=== PATIENT | female | born 1970 | race Caucasian/White ===

== ENCOUNTER → 2020-11-13 | Outpatient (CLI) | payer BC ==
[~2020-11-13] MED LIST: AMOXICILLIN 8751 TAB PO; FLAGYL500 MG
== END ==
LOC: MC.RAD 16:37
DX: Z12.31 Encounter for screening mammogram for malignant neoplasm of breast (principal); N63.10 Unspecified lump in the right breast, unspecified quadrant; N63.20 Unspecified lump in the left breast, unspecified quadrant

== ENCOUNTER → 2020-11-19 | Outpatient (CLI) | payer BC | LOC: MC.RAD 06:58 | DX: N60.02 Solitary cyst of left breast (principal); N60.01 Solitary cyst of right breast; N64.9 Disorder of breast, unspecified ==

== ENCOUNTER → 2021-05-05 | Emergency (ER) | payer BC ==
[~2021-05-05] VITALS: Ht 172.7 cm; Wt 100.0 kg
[2021-05-05 19:48] VITALS: BP 138/80; PULSE 70; TEMP 97.5
== END ==
LOC: COL.ER 19:39
DX: S31.815A Open bite of right buttock, initial encounter (principal); Z23 Encounter for immunization; W54.0XXA Bitten by dog, initial encounter

== ENCOUNTER → 2022-01-14 | Outpatient (CLI) | payer OTHER | LOC: MC.RAD 14:38 | DX: Z12.31 Encounter for screening mammogram for malignant neoplasm of breast (principal); N64.9 Disorder of breast, unspecified ==

== ENCOUNTER 2022-01-31 07:20 | Day surgery (SDC) | payer BC ==
[~2022-01-31] VITALS: Ht 172.7 cm; Wt 103.2 kg
[2022-01-31 07:41] VITALS: BP 127/69; PULSE 66; TEMP 97.8
[2022-01-31 08:50] VITALS: BP 115/60; PULSE 70; TEMP 97.4
--- NOTE | 2022-01-31 08:55 | NUR ---
0850 - PT arrived from procedure, drowsy but oriened. PT assisted up and out of bed by 2:1 RN assist from cart to chair. Monitors applied and VSS. PT denies nausea and pain, no vomiting. PT provided with a warm muffin and ice water per request. PT is calling her Mom for an update. PT oriented to room and call slater, prior to call. Warm blanekts provided, non-slip socks remain on.
[2022-01-31 09:05] VITALS: BP 101/70; PULSE 51
--- NOTE | 2022-01-31 09:09 | NUR ---
0905 - [facility]. PT continues to deny nausea and pain. PT has finished provided snack and drink, awaiting discharge per request. Call slater remains within reach.
[2022-01-31 09:20] VITALS: BP 116/69; PULSE 51
--- NOTE | 2022-01-31 09:22 | NUR ---
0920 - VSS. IV discontinued due to dishcarge. Catheter tip intact. Pressure bandage applied. NO redness or swelling noted. DC instructions and educational material reviewed with the PT who verbalized understanding of the material and signed the related paperwork. PT denied needing assistance changing into personal clothes. Call slater remains within reach if needed.
--- NOTE | 2022-01-31 09:31 | NUR ---
PT dismissed from endo via wheelchair to the PT entrence by Yanet KILPATRICK and was transferred into the care of her Mother, who is driving private car. PT has DC packet in hand and personal belongings.
== END 2022-01-31 09:30 | disposition home or self-care (01) ==
LOC: SDCO 07:20
DX: Z12.11 Encounter for screening for malignant neoplasm of colon (principal); K64.1 Second degree hemorrhoids
CPT/HCPCS: J2704; J7030

== ENCOUNTER → 2024-05-17 | Outpatient (CLI) | payer OTHER | LOC: MC.RAD 14:53 | DX: Z12.31 Encounter for screening mammogram for malignant neoplasm of breast (principal) ==